=== PATIENT | female | born 1940 | race Hispanic/Latino ===

== ENCOUNTER 2021-04-23 13:55 | Observation (INO) | payer MEDICARE ==
[~2021-04-23] VITALS: Ht 162.6 cm; Wt 95.3 kg
[2021-04-23 14:11] VITALS: BP 92/62
[2021-04-23 14:21] VITALS: BP 141/49
[2021-04-23 14:52] LABS: BASOPHILS % (AUTO) 0.5 % (0.0-5.0); EOSINOPHILS % (AUTO) 1.6 % (0.0-8.0); HEMATOCRIT 35.4 % (36-48); LYMPHOCYTES % (AUTO) 28.4 % (21.0-51.0); MEAN CORPUSCULAR HEMOGLOBIN 30.1 pg (27.0-33.0); MEAN CORPUSCULAR HGB CONC 31.9 g/dL (32.0-36.0); MEAN CORPUSCULAR VOLUME 94.4 fL (79-99); MONOCYTES % (AUTO) 7.8 % (3.0-13.0); NEUTROPHILS % (AUTO) 61.4 % (40.0-77.0); PLATELET COUNT (AUTO) 127 K/uL (130-400); RED BLOOD CELL COUNT(AUTO) 3.75 MIL/uL (4.00-5.50); RED CELL DISTRIBUTION WIDTH 14.3 % (11.0-15.5); WHITE BLOOD COUNT (AUTO) 6.3 K/uL (4.8-10.8)
[2021-04-23 15:02] LABS: CREATININE 2.5 mg/dL (0.5-1.5); POTASSIUM 4.6 mmol/L (3.5-5.1)
[2021-04-23 15:07] LABS: ALBUMIN 3.2 g/dL (3.5-5.0); BILIRUBIN,TOTAL 0.8 mg/dL (0.2-1.0); TOTAL PROTEIN, SERUM 6.8 g/dL (6.0-8.3)
[2021-04-23 17:00] VITALS: BP 135/52
[2021-04-23] MEDS ORDERED: TORS10TA18 PO (17:10)
[2021-04-23] MEDS ORDERED: NITR0.4T50 SL (17:10)
[2021-04-23] MEDS ORDERED: AEC81 PO (17:10)
[2021-04-23] MEDS ORDERED: HYDR-4060 PO (17:10)
[2021-04-23] MEDS ORDERED: CEVI30CA7 PO (17:10)
[2021-04-23] MEDS ORDERED: OMEP-272 PO (17:10)
[2021-04-23] MEDS ORDERED: FERR-82 PO (17:10)
[2021-04-23] MEDS ORDERED: CEPH250C3 PO (17:10)
[2021-04-23] MEDS ORDERED: PREG75 PO (17:10)
[2021-04-23] MEDS ORDERED: INSU100I26 SQ (17:10)
[2021-04-23] MEDS ORDERED: FOLI1 PO (17:10)
[2021-04-23] MEDS ORDERED: ROSU10TA28 PO (17:10)
[2021-04-23] MEDS ORDERED: SODI650T PO (17:10)
[2021-04-23] MEDS ORDERED: LEVO75TA10 PO (17:10)
[2021-04-23] MEDS ORDERED: METO25TA6 PO (17:10)
[2021-04-23] MEDS ORDERED: FLUC150T6 PO (17:10)
[2021-04-23] MEDS ORDERED: FOLI0.8T22 PO (17:10)
[2021-04-23] MEDS ORDERED: RANO10003 PO (17:10)
[2021-04-23 18:07] VITALS: BP 135/62
[2021-04-23] MEDS ORDERED: NACL 0.9% 1000ML 1,000 ML IV SCH (18:45)
[2021-04-23 19:54] VITALS: BP 147/54
[2021-04-23 20:16] VITALS: BP 154/65
[2021-04-23] MEDS ORDERED: INSULIN R PO SS1 SQ SCH (21:00)
[2021-04-24] VITALS (7 sets, daily range): BP systolic 106–161; BP diastolic 48–87
[2021-04-24] MEDS ORDERED: TORSEMIDE 20 MG TAB PO SCH (00:30)
[2021-04-24] MEDS ORDERED: NITROGLYCERIN 0.4 MG SL TAB SL PRN (00:30)
[2021-04-24] MEDS ORDERED: ACETAMINOPHEN 325 MG TAB PO PRN ×2 (00:45)
[2021-04-24] MEDS ORDERED: POTASSIUM CHLORIDE 10MEQ/100ML 100 ML IV PRN (00:45)
[2021-04-24] MEDS ORDERED: LIDOCAINE HCL-MPF 1% 2ML VIAL IV PRN (00:45)
[2021-04-24] MEDS ORDERED: DEXTROSE 50%-WATER 50 ML DISP.SYRIN IV PRN (00:45)
[2021-04-24] MEDS ORDERED: DiphenhydrAMINE HCL 50 MG/ML VIAL IV PRN (00:45)
[2021-04-24] MEDS ORDERED: ONDANSETRON 4MG INJ IV PRN (00:45)
[2021-04-24] MEDS ORDERED: LACTULOSE 20 GM/30 ML UDCUP PO PRN (00:45)
[2021-04-24] MEDS ORDERED: KCL 20 MEQ ERTAB PO PRN (00:45)
[2021-04-24] MEDS ORDERED: MAG/ALUM/SIMETH 30 ML UDCUP PO PRN (00:45)
[2021-04-24] MEDS ORDERED: POTASSIUM CHLORIDE 10% ELIXIR 20 MEQ/15 ML UDCUP PO PRN (00:45)
[2021-04-24] MEDS ORDERED: GLUCAGON 1MG KIT 1 MG ML IM PRN (00:45)
[2021-04-24] MEDS ORDERED: DIPHENHYDRAMINE HCL 25 MG CAPSULE PO PRN (00:45)
[2021-04-24] MEDS ORDERED: ACETAMINOPHEN 325 MG TAB ONE (01:04)
[2021-04-24] MEDS ORDERED: CLONIDINE HCL 0.1 MG TABLET PO PRN (01:15)
[2021-04-24 06:00] LABS: APPEARANCE,URINE Clear (CLEAR); BILIRUBIN,URINE Negative (NEGATIVE); COLOR,URINE Yellow (YELLOW); GLUCOSE, URINE (UA) Negative (NEGATIVE); KETONES,URINE Negative (NEGATIVE); LEUKOCYTE ESTERASE ,URINE Trace (NEGATIVE); NITRATE,URINE Negative (NEGATIVE); OCCULT BLOOD,URINE Negative (NEGATIVE); PH,URINE 7.5 (5.0-8.0); PROTEIN,URINE Trace mg/dL (NEGATIVE); UROBILINOGEN,URINE 0.2 mg/dL (0.2-1.0)
[2021-04-24] MEDS ORDERED: LEVOTHYROXINE 75 MCG TABLET PO SCH (06:00)
[2021-04-24 06:09] LABS: AMPHET/METH SCREEN,URINE NEGATIVE (NEGATIVE); BARBITURATE SCREEN, URINE NEGATIVE (NEGATIVE); BENZODIAZEPINES SCREEN,URINE NEGATIVE (NEGATIVE); CANNABINOID SCREEN,URINE NEGATIVE (NEGATIVE); COCAINE SCREEN,URINE NEGATIVE (NEGATIVE); OPIATE SCREEN,URINE NEGATIVE (NEGATIVE); PHENCYCLIDINE SCREEN,URINE NEGATIVE (NEGATIVE)
[2021-04-24 06:10] LABS: BACTERIA,URINE Rare /HPF (None Seen); RBC,URINE None Seen /HPF (0-1); SQUAMOUS EPITHELIAL CELL,UR 0-2 /HPF (0-2)
[2021-04-24 07:06] LABS: CREATININE 2.3 mg/dL (0.5-1.5); POTASSIUM 4.5 mmol/L (3.5-5.1)
[2021-04-24] MEDS ORDERED: INSULIN HUMULIN R 100 UNIT/ML 3ML SQ SCH (07:30)
[2021-04-24] MEDS ORDERED: RANOLAZINE 500 MG TAB.SR.12H PO SCH (09:00)
[2021-04-24] MEDS ORDERED: SODIUM BICARBONATE 650 MG TAB PO SCH (09:00)
[2021-04-24] MEDS ORDERED: ASPIRIN 81 MG EC TAB PO SCH (09:00)
[2021-04-24] MEDS ORDERED: CEPHALEXIN 250 MG CAPSULE PO SCH (09:00)
[2021-04-24] MEDS ORDERED: Vitamin B Complex/Vit C/Folic Acid PO SCH (09:00)
[2021-04-24] MEDS ORDERED: CEVIMELINE 30 MG PO SCH (09:00)
[2021-04-24] MEDS ORDERED: FOLIC ACID 1 MG TABLET PO SCH (09:00)
[2021-04-24] MEDS ORDERED: FERROUS SULFATE 325 MG TABLET.DR PO SCH (09:00)
[2021-04-24] MEDS ORDERED: PANTOPRAZOLE 40 MG TAB DR PO SCH (09:00)
[2021-04-24] MEDS ORDERED: ENOXAPARIN SODIUM 30 MG/0.3 ML SQ SCH (09:00)
[2021-04-24] MEDS ORDERED: METOPROLOL TARTRATE 25 MG TAB ONE (09:11)
[2021-04-24] MEDS ORDERED: PREG75 PO (10:40)
[2021-04-24] MEDS ORDERED: METOPROLOL TARTRATE 25 MG TAB PO SCH (21:00)
[2021-04-24] MEDS ORDERED: ATORVASTATIN 40 MG TABLET PO SCH (21:00)
== END 2021-04-24 12:30 | disposition home or self-care (01) ==
LOC: EDH 13:55 → EDHIP 13:56 → UNDOADMOB 13:56 → EDHIP 17:00
PROVIDERS: ADMIT Internal Medicine; ATTEND Internal Medicine
DX: K21.9 Gastro-esophageal reflux disease without esophagitis (principal); R55 Syncope and collapse; M35.00 Sjogren syndrome, unspecified; N39.0 Urinary tract infection, site not specified; E11.22 Type 2 diabetes mellitus with diabetic chronic kidney disease; E11.21 Type 2 diabetes mellitus with diabetic nephropathy; I13.10 Hypertensive heart and chronic kidney disease without heart failure, with stage 1 through stage 4 chronic kidney disease, or unspecified chronic kidney disease; N18.4 Chronic kidney disease, stage 4 (severe); D63.1 Anemia in chronic kidney disease; E11.42 Type 2 diabetes mellitus with diabetic polyneuropathy; E11.43 Type 2 diabetes mellitus with diabetic autonomic (poly)neuropathy; E86.0 Dehydration; K31.84 Gastroparesis; I70.0 Atherosclerosis of aorta; E55.9 Vitamin D deficiency, unspecified; E78.2 Mixed hyperlipidemia; G43.909 Migraine, unspecified, not intractable, without status migrainosus; M06.9 Rheumatoid arthritis, unspecified; F03.90 Unspecified dementia, unspecified severity, without behavioral disturbance, psychotic disturbance, mood disturbance, and anxiety; F32.9 Major depressive disorder, single episode, unspecified; E66.01 Morbid (severe) obesity due to excess calories; J44.9 Chronic obstructive pulmonary disease, unspecified; E03.9 Hypothyroidism, unspecified; E11.51 Type 2 diabetes mellitus with diabetic peripheral angiopathy without gangrene; I25.10 Atherosclerotic heart disease of native coronary artery without angina pectoris; N39.498 Other specified urinary incontinence; M51.06 Intervertebral disc disorders with myelopathy, lumbar region; M48.062 Spinal stenosis, lumbar region with neurogenic claudication; D69.59 Other secondary thrombocytopenia; F11.20 Opioid dependence, uncomplicated; F13.20 Sedative, hypnotic or anxiolytic dependence, uncomplicated; J30.9 Allergic rhinitis, unspecified; K74.60 Unspecified cirrhosis of liver; Z90.49 Acquired absence of other specified parts of digestive tract; Z90.711 Acquired absence of uterus with remaining cervical stump; Z95.5 Presence of coronary angioplasty implant and graft; Z79.82 Long term (current) use of aspirin; Z79.4 Long term (current) use of insulin; Z88.0 Allergy status to penicillin; Z79.899 Other long term (current) drug therapy; Z88.1 Allergy status to other antibiotic agents; Z88.2 Allergy status to sulfonamides; Z88.8 Allergy status to other drugs, medicaments and biological substances; Z91.041 Radiographic dye allergy status; Z68.38 Body mass index [BMI] 38.0-38.9, adult
CPT/HCPCS: 36415 ×2; 70450; 71045; 80048; 80053; 80305; 81001; 82948 ×3; 84443; 85025; 87088; 93005; 96360; 96361 ×2; 96372; 99285; G0378 ×19; J1650

== ENCOUNTER 2022-05-01 15:48 | Observation (INO) | payer MEDICARE ==
[~2022-05-01] VITALS: Ht 162.6 cm; Wt 102.9 kg
[~2022-05-01 15:48] MED LIST: AEC81 PO; CEPH250C3 PO; CEVI30CA7 PO; FERR-82 PO; FOLI0.8T22 PO; FOLI1 PO; HYDR-4060 PO; INSU100I26 SQ; LEVO75TA10 PO; METO25TA6 PO; NITR0.4T50 SL; OMEP-272 PO; PREG75 PO; RANO10003 PO; ROSU10TA28 PO; SODI650T PO; TORS10TA18 PO
[2022-05-01] MEDS ORDERED: ASPIRIN 81MG CHEW TAB PO ONE (16:00)
[2022-05-01 16:16] LABS: BASOPHILS % (AUTO) 0.3 % (0.0-5.0); EOSINOPHILS % (AUTO) 1.5 % (0.0-8.0); HEMATOCRIT 29.2 % (36-48); LYMPHOCYTES % (AUTO) 8.9 % (21.0-51.0); MEAN CORPUSCULAR HEMOGLOBIN 31.2 pg (27.0-33.0); MEAN CORPUSCULAR HGB CONC 32.9 g/dL (32.0-36.0); MEAN CORPUSCULAR VOLUME 94.8 fL (79-99); MONOCYTES % (AUTO) 3.6 % (3.0-13.0); NEUTROPHILS % (AUTO) 85.2 % (40.0-77.0); PLATELET COUNT (AUTO) 70 K/uL (130-400); RED BLOOD CELL COUNT(AUTO) 3.08 MIL/uL (4.00-5.50); RED CELL DISTRIBUTION WIDTH 14.5 % (11.0-15.5); WHITE BLOOD COUNT (AUTO) 3.9 K/uL (4.8-10.8)
[2022-05-01 16:28] LABS: CREATININE 2.6 mg/dL (0.5-1.5); POTASSIUM 3.9 mmol/L (3.5-5.1)
[2022-05-01 16:38] LABS: ALBUMIN 2.5 g/dL (3.5-5.0); BILIRUBIN,TOTAL 0.6 mg/dL (0.2-1.0); TOTAL PROTEIN, SERUM 5.7 g/dL (6.0-8.3)
[2022-05-01 16:51] LABS: PLATELET MORPHOLOGY COMMENT DECREASED
[2022-05-01] MEDS ORDERED: ACETAMINOPHEN 325 MG TAB PO PRN (21:30)
[2022-05-01] MEDS ORDERED: ONDANSETRON 4MG INJ IVP PRN (21:30)
[2022-05-01] MEDS ORDERED: FLUT1BLS3 IH (22:06)
[2022-05-01] MEDS ORDERED: INSU100I3 SQ (22:08)
[2022-05-01 23:25] VITALS: BP 136/46
[2022-05-02 04:00] VITALS: BP 148/69
[2022-05-02] MEDS: INSULIN HUMULIN R 100 UNIT/ML 3ML SQ SCH ×2 (06:35→11:30)
[2022-05-02 08:00] VITALS: BP 131/57
[2022-05-02] MEDS ORDERED: PANTOPRAZOLE 40 MG TAB DR PO SCH (08:51)
[2022-05-02] MEDS ORDERED: DIPHENHYDRAMINE HCL 25 MG CAPSULE PO PRN (09:00)
[2022-05-02] MEDS ORDERED: HYDROCODONE/ACETAMINOPHEN 5/325 MG TAB PO PRN (09:00)
[2022-05-02] MEDS ORDERED: CEPHALEXIN 250 MG CAPSULE PO SCH (09:00)
[2022-05-02] MEDS ORDERED: LEVOFLOXACIN 500 MG TABLET PO SCH (09:00)
[2022-05-02] MEDS ORDERED: PREGABALIN 75 MG CAPSULE PO SCH (09:00)
[2022-05-02] MEDS ORDERED: ALBUTEROL 0.083% 2.5 MG/3 ML INH IH PRN (09:00)
[2022-05-02] MEDS ORDERED: UMECLIDIN IH SCH (09:00)
[2022-05-02] MEDS ORDERED: ONDANSETRON 4MG INJ IV PRN (09:00)
[2022-05-02] MEDS ORDERED: DEXTROSE 5 %-0.45 % NACL 500 ML IV SCH (09:00)
[2022-05-02] MEDS ORDERED: KCL 20 MEQ ERTAB PO PRN (09:00)
[2022-05-02] MEDS ORDERED: LACTULOSE 20 GM/30 ML UDCUP PO PRN (09:00)
[2022-05-02] MEDS ORDERED: ASPIRIN 81 MG EC TAB PO SCH (09:00)
[2022-05-02] MEDS ORDERED: ENOXAPARIN SODIUM 30 MG/0.3 ML SQ SCH (09:00)
[2022-05-02] MEDS ORDERED: VILANTER IH SCH (09:00)
[2022-05-02] MEDS ORDERED: SODIUM BICARBONATE 650 MG TAB PO SCH (09:00)
[2022-05-02] MEDS ORDERED: POTASSIUM CHLORIDE 20MEQ/100ML 100 ML IV PRN (09:00)
[2022-05-02] MEDS ORDERED: GLUCAGON 1MG KIT 1 MG ML IM PRN (09:00)
[2022-05-02] MEDS ORDERED: 0.9%NACL 1000ML 1,000 ML IV SCH (09:00)
[2022-05-02] MEDS ORDERED: NITROGLYCERIN 0.4 MG SL TAB SL PRN (09:00)
[2022-05-02] MEDS ORDERED: RANOLAZINE 500 MG TAB.SR.12H PO SCH (09:00)
[2022-05-02] MEDS ORDERED: LIDOCAINE HCL-MPF 1% 2ML VIAL IV PRN (09:00)
[2022-05-02] MEDS ORDERED: CEVIMELINE HCL 30 MG PO SCH (09:00)
[2022-05-02] MEDS ORDERED: FERROUS SULFATE 325 MG TABLET.DR PO SCH (09:00)
[2022-05-02] MEDS ORDERED: POTASSIUM CHLORIDE 10% ELIXIR 20 MEQ/15 ML UDCUP PO PRN (09:00)
[2022-05-02] MEDS ORDERED: FLUTICASONE IH SCH (09:00)
[2022-05-02] MEDS ORDERED: DEXTROSE 50%-WATER 50 ML DISP.SYRIN IV PRN (09:00)
[2022-05-02] MEDS ORDERED: FOLIC ACID 1 MG TABLET PO SCH (09:00)
[2022-05-02] MEDS ORDERED: Vitamin B Complex/Vit C/Folic Acid PO SCH (09:00)
[2022-05-02] MEDS ORDERED: BISACODYL 10 MG SUPP.RECT RC PRN (09:30)
[2022-05-02] MEDS ORDERED: INSULIN HUMULIN R 100 UNIT/ML 3ML SQ SCH (11:30)
[2022-05-02] MEDS ORDERED: METOCLOPRAMIDE 10 MG/2 ML VIAL IVP SCH (11:30)
[2022-05-02 12:00] VITALS: BP 116/41
[2022-05-02] MEDS ORDERED: ATORVASTATIN 20 MG TABLET PO SCH (21:00)
[2022-05-02] MEDS ORDERED: METOPROLOL TARTRATE 25 MG TAB PO SCH (21:00)
== END 2022-05-02 15:30 | disposition home or self-care (01) ==
LOC: EDH 15:48 → EDHIP 20:20 → 3AH 23:14
PROVIDERS: ADMIT Internal Medicine; ATTEND Internal Medicine
DX: R07.89 Other chest pain (principal); I95.9 Hypotension, unspecified; K21.9 Gastro-esophageal reflux disease without esophagitis; G43.909 Migraine, unspecified, not intractable, without status migrainosus; N39.0 Urinary tract infection, site not specified; J30.9 Allergic rhinitis, unspecified; E11.22 Type 2 diabetes mellitus with diabetic chronic kidney disease; E11.43 Type 2 diabetes mellitus with diabetic autonomic (poly)neuropathy; K31.84 Gastroparesis; E11.42 Type 2 diabetes mellitus with diabetic polyneuropathy; E11.51 Type 2 diabetes mellitus with diabetic peripheral angiopathy without gangrene; I13.10 Hypertensive heart and chronic kidney disease without heart failure, with stage 1 through stage 4 chronic kidney disease, or unspecified chronic kidney disease; N18.4 Chronic kidney disease, stage 4 (severe); D63.1 Anemia in chronic kidney disease; E78.2 Mixed hyperlipidemia; E03.9 Hypothyroidism, unspecified; M06.9 Rheumatoid arthritis, unspecified; K74.60 Unspecified cirrhosis of liver; F03.90 Unspecified dementia, unspecified severity, without behavioral disturbance, psychotic disturbance, mood disturbance, and anxiety; F32.9 Major depressive disorder, single episode, unspecified; E66.01 Morbid (severe) obesity due to excess calories; J44.9 Chronic obstructive pulmonary disease, unspecified; M35.00 Sjogren syndrome, unspecified; I70.0 Atherosclerosis of aorta; M48.061 Spinal stenosis, lumbar region without neurogenic claudication; D69.59 Other secondary thrombocytopenia; I25.10 Atherosclerotic heart disease of native coronary artery without angina pectoris; Z90.710 Acquired absence of both cervix and uterus; Z87.440 Personal history of urinary (tract) infections; Z90.49 Acquired absence of other specified parts of digestive tract; Z79.82 Long term (current) use of aspirin; Z79.4 Long term (current) use of insulin; Z68.38 Body mass index [BMI] 38.0-38.9, adult; Z79.890 Hormone replacement therapy; Z88.0 Allergy status to penicillin; Z79.899 Other long term (current) drug therapy
CPT/HCPCS: 36415 ×2; 71045; 80053; 82550 ×3; 82948 ×2; 83874 ×3; 84484 ×4; 85025; 93005 ×2; 96372; 99285; G0378 ×7; J1650; J7042

== ENCOUNTER → 2022-05-25 | Outpatient (CLI) | payer MEDICARE ==
[~2022-05-25] MED LIST changes: +FLUT1BLS3 IH; +INSU100I3 SQ
== END | disposition home or self-care (01) ==
LOC: RAH 10:26
PROVIDERS: ATTEND Internal Medicine
DX: R13.10 Dysphagia, unspecified (principal); T17.928A Food in respiratory tract, part unspecified causing other injury, initial encounter; X58.XXXA Exposure to other specified factors, initial encounter; Y93.89 Activity, other specified; Y92.89 Other specified places as the place of occurrence of the external cause; Y99.8 Other external cause status
CPT/HCPCS: 74230; 92611

== ENCOUNTER 2022-07-20 20:12 | Emergency (ER) | payer MEDICARE ==
[2022-07-20 21:07] LABS: BASOPHILS % (AUTO) 0.5 % (0.0-5.0); EOSINOPHILS % (AUTO) 1.6 % (0.0-8.0); HEMATOCRIT 31.5 % (36-48); LYMPHOCYTES % (AUTO) 32.5 % (21.0-51.0); MEAN CORPUSCULAR HEMOGLOBIN 30.4 pg (27.0-33.0); MEAN CORPUSCULAR VOLUME 92.1 fL (79-99); MONOCYTES % (AUTO) 11.8 % (3.0-13.0); NEUTROPHILS % (AUTO) 53.1 % (40.0-77.0); PLATELET COUNT (AUTO) 87 K/uL (130-400); RED BLOOD CELL COUNT(AUTO) 3.42 MIL/uL (4.00-5.50); WHITE BLOOD COUNT (AUTO) 3.7 K/uL (4.8-10.8)
[2022-07-20 21:07] LABS: APPEARANCE,URINE CLOUDY (CLEAR); BILIRUBIN,URINE NEGATIVE (NEGATIVE); COLOR,URINE YELLOW (YELLOW); GLUCOSE, URINE (UA) NEGATIVE (NEGATIVE); KETONES,URINE NEGATIVE (NEGATIVE); LEUKOCYTE ESTERASE ,URINE LARGE (NEGATIVE); NITRATE,URINE NEGATIVE (NEGATIVE); OCCULT BLOOD,URINE MODERATE (NEGATIVE); PH,URINE 6.5 (5.0-8.0); PROTEIN,URINE 100 mg/dL (NEGATIVE); UROBILINOGEN,URINE 0.2 mg/dL (0.2-1.0)
[2022-07-20 21:10] VITALS: BP 146/77
[2022-07-20 21:26] LABS: ALBUMIN 2.6 g/dL (3.5-5.0); CREATININE 2.8 mg/dL (0.5-1.5); TOTAL PROTEIN, SERUM 6.4 g/dL (6.0-8.3)
[2022-07-20 21:29] LABS: BACTERIA,URINE Few /HPF (None Seen); WBC,URINE >100 /HPF (0-1)
[2022-07-20 21:30] LABS: SQUAMOUS EPITHELIAL CELL,UR None Seen /HPF (0-2)
[2022-07-20 21:46] LABS: POTASSIUM 4.7 mmol/L (3.5-5.1)
[2022-07-20] MEDS ORDERED: CEPH500B PO (22:45)
[2022-07-20] MEDS ORDERED: CEFTRIAXONE 1G VIAL IVP ONE (23:00)
== END 2022-07-20 23:44 | disposition home or self-care (01) ==
LOC: EDH 20:12
DX: N39.0 Urinary tract infection, site not specified (principal); R41.82 Altered mental status, unspecified; E03.9 Hypothyroidism, unspecified; E11.9 Type 2 diabetes mellitus without complications; I10 Essential (primary) hypertension; Z79.82 Long term (current) use of aspirin; Z88.0 Allergy status to penicillin; Z79.899 Other long term (current) drug therapy; Z88.1 Allergy status to other antibiotic agents; Z88.2 Allergy status to sulfonamides; Z88.8 Allergy status to other drugs, medicaments and biological substances; Z90.49 Acquired absence of other specified parts of digestive tract
CPT/HCPCS: 99285; 96374; 71045; 84484; 80053; 85025; 87077; 87088; 87186; 82948; 81001; 36415; 93005; J0696

== ENCOUNTER 2022-09-14 14:56 | Emergency (ER) | payer MEDICARE ==
[~2022-09-14 14:56] MED LIST changes: +CEPH500B PO
[2022-09-14 14:57] VITALS: BP 137/52
[2022-09-14 15:44] LABS: BASOPHILS % (AUTO) 0.5 % (0.0-5.0); EOSINOPHILS % (AUTO) 3.1 % (0.0-8.0); HEMATOCRIT 28.3 % (36-48); LYMPHOCYTES % (AUTO) 34.1 % (21.0-51.0); MEAN CORPUSCULAR HEMOGLOBIN 31.2 pg (27.0-33.0); MEAN CORPUSCULAR HGB CONC 32.9 g/dL (32.0-36.0); MONOCYTES % (AUTO) 11.2 % (3.0-13.0); NEUTROPHILS % (AUTO) 50.8 % (40.0-77.0); PLATELET COUNT (AUTO) 101 K/uL (130-400); RED BLOOD CELL COUNT(AUTO) 2.98 MIL/uL (4.00-5.50); RED CELL DISTRIBUTION WIDTH 14.6 % (11.0-15.5); WHITE BLOOD COUNT (AUTO) 3.8 K/uL (4.8-10.8)
[2022-09-14 15:52] LABS: CREATININE 2.5 mg/dL (0.5-1.5)
[2022-09-14 15:59] LABS: ALBUMIN 2.5 g/dL (3.5-5.0); TOTAL PROTEIN, SERUM 6.3 g/dL (6.0-8.3)
[2022-09-14 16:12] LABS: B-TYPE NATRIURETIC PEPTIDE 472 pg/mL (0-100)
[2022-09-14 16:25] LABS: APPEARANCE,URINE TURBID (CLEAR); BILIRUBIN,URINE NEGATIVE (NEGATIVE); COLOR,URINE YELLOW (YELLOW); GLUCOSE, URINE (UA) NEGATIVE (NEGATIVE); KETONES,URINE NEGATIVE (NEGATIVE); LEUKOCYTE ESTERASE ,URINE 500 Leu/uL (NEGATIVE); NITRATE,URINE 1+ (NEGATIVE); OCCULT BLOOD,URINE SMALL (NEGATIVE); PH,URINE 6.5 (5.0-8.0); PROTEIN,URINE 70 mg/dL (NEGATIVE); UROBILINOGEN,URINE 0.2 mg/dL (0.2-1.0)
[2022-09-14 17:02] LABS: BACTERIA,URINE MOD /HPF (None Seen); WBC,URINE TNTC /HPF (0-1)
[2022-09-14] MEDS ORDERED: LEVO750T68 PO (17:29)
[2022-09-14] MEDS ORDERED: LEVOFLOXACIN 750 MG/D5W 150ML BAG IVPB ONE (17:30)
[2022-09-14] MEDS ORDERED: LEVOFLOXACIN 750 MG/D5W 150 ML 150 ML ONE (17:37)
== END 2022-09-14 19:12 | disposition home or self-care (01) ==
LOC: EDH 14:56
DX: N39.0 Urinary tract infection, site not specified (principal); R55 Syncope and collapse; E11.9 Type 2 diabetes mellitus without complications; E78.00 Pure hypercholesterolemia, unspecified; I10 Essential (primary) hypertension; M06.9 Rheumatoid arthritis, unspecified; M35.00 Sjogren syndrome, unspecified; Z88.0 Allergy status to penicillin; Z88.2 Allergy status to sulfonamides; Z88.8 Allergy status to other drugs, medicaments and biological substances; Z88.1 Allergy status to other antibiotic agents; Z91.018 Allergy to other foods; Z79.899 Other long term (current) drug therapy; Z79.82 Long term (current) use of aspirin; Z79.4 Long term (current) use of insulin
CPT/HCPCS: 99285; 96365; 70450; 71045; 82550; 84484; 80053; 83880; 85025; 87077; 87088; 87186; 81001; 36415; 93005; J1956